=== PATIENT | female | born 1955 | race Caucasian/White ===

== ENCOUNTER → 2017-07-12 | Outpatient (CLI) | payer MEDICARE, MEDICAID ==
--- NOTE | 2017-07-12 15:24 | WOMENS IMAGING REPORT ---
EXAM DESCRIPTION: BILAT SCREENING MAMMO W/CAD COMPLETED DATE/TIME: 07/12/2017 2:07 pm REASON FOR STUDY: ROUTINE SCREENING; Z12.31 Z12.31 ENCNTR SCREEN MAMMOGRAM FOR MALIGNANT NEOPLASM O F NORAH COMPARISON: 06/30/2016 TECHNIQUE: Standard craniocaudal and mediolateral oblique views of each breast recorded using SEDLinea l acquisition. LIMITATIONS: None. FINDINGS: No masses, calcifications or architectural distortion. No areas of suspicion. Read with the assistance of CAD. .[facility] - R2 Cenova Version 1.3 .[facility] Imaging - R2 Cenova Version 1.3 .[facility] Imaging - R2 Cenova Version 2.4 .[facility] [place] - R2 Cenova Version 2.4 .[facility] - R2 [employer] Version 9.2 IMPRESSION: NORMAL MAMMOGRAM. BIRADS 1. BREAST DENSITY: b. There are scattered areas of fibroglandular density. BIRAD: 1 NEGATIVE RECOMMENDATION: ROUTINE SCREENING COMMENT: The patient has been notified of the results by letter per SA requirements. Additional no tification policies are in place for contacting patient with suspicious or incomplete findings. Quality ID #[id number]: The [employer] recommends an annual screening mammogram for women aged 40 years or over. This facility utilizes a reminder system to ensure that all patients receive reminder letters, and/or direct phone calls for appointments. This includes reminders for routine scr eening mammograms, diagnostic mammograms, or other Breast Imaging Interventions when appropriate. Th is patient will be placed in the appropriate reminder system. The [employer] (ACR) has developed recommendations for screening MRI of the breast s in certain patient populations, to be used in conjunction with mammography. Breast MRI surveillanc e may be appropriate for women with more than 20% lifetime risk of developing breast cancer as deter mined by genetic testing, significant family history of the disease, or history of mantle radiation f or Hodgkins Disease. ACR Practice Guidelines 2008. TECHNICAL DOCUMENTATION: FINDING NUMBER: (1) ASSESSMENT: (1) JOB ID: [id number] [employer])- All Rights Reserved
== END ==
LOC: WI 13:28
PROVIDERS: ATTEND Family Medicine
DX: Z12.31 Encounter for screening mammogram for malignant neoplasm of breast (principal)
CPT/HCPCS: 77067; G0202

== ENCOUNTER 2017-07-31 16:21 | Emergency (ER) | payer MEDICARE, MEDICAID ==
[2017-07-31] MEDS ORDERED: PREDNISONE 20 MG TABLET PO ONE (17:12)
[2017-07-31] MEDS ORDERED: IPRATROPIUM/ALBUTEROL 0.5-2.5 MG/3 ML AMPUL NEB ONE (17:12)
--- NOTE | 2017-07-31 17:12 | ER Document Report ---
ED Respiratory Problem - General Chief Complaint: Painful cough, rib pain Stated Complaint: COUGH Time Seen by Provider: 07/31/17 17:01 Notes: Patient is a 62-year-old female who presents emergency department complaining of cough since Monday. She denies any fevers or chills. She has been taking Levaquin at home from an old prescription and has a refill at the pharmacy. She states she is a smoker but denies a history of COPD or asthma. She did states that her cough is not productive. Worse at night. She also admits to right-sided chest wall pain that is worse with deep breaths. With a history of rib fracture on that side TRAVEL OUTSIDE OF THE [place] IN LAST 30 DAYS: No - Related Data Allergies/Adverse Reactions: diclofenac potassium [From Cataflam] Allergy (Verified 06/06/12 16:22) Hives naproxen [Naproxen] Allergy (Verified 06/06/12 16:22) tramadol HCl [From Ultram ER] Allergy (Verified 06/06/12 16:22) Past Medical History - Social History Smoking Status: Current Every Day Smoker Family History: Reviewed & Not Pertinent - Past Medical History Cardiac Medical History: Reports: Hx Coronary Artery Disease - MITRAL VALVE PROLAPSE Denies: Hx Hypertension Pulmonary Medical History: Denies: Hx Asthma Neurological Medical History: Reports: Hx Migraine Endocrine Medical History: Denies: Hx Diabetes Mellitus Type 1, Hx Diabetes Mellitus Type 2 Musculoskeltal Medical History: Reports Hx Arthritis, Reports Hx Fibromyalgia Psychiatric Medical History: Reports: Hx Bipolar Disorder Past Surgical History: Reports: Hx Breast Surgery - "plugged milk duct removed" , Hx Hysterectomy - Immunizations Hx Diphtheria, Pertussis, Tetanus Vaccination: Yes Hx Pneumococcal Vaccination: 05/14/11 Review of Systems - Review of Systems Constitutional: No symptoms reported Cardiovascular: See HPI Respiratory: See HPI Gastrointestinal: No symptoms reported - Negative Musculoskeletal: No symptoms reported Neurological/Psychological: No symptoms reported -: Yes All other systems reviewed and negative Physical Exam - Vital signs Vitals: Temp Pulse Resp BP Pulse Ox 100.0 F 86 18 147/52 H 95 07/31/17 16:29 07/31/17 16:29 07/31/17 16:29 07/31/17 16:29 07/31/17 16:29 - Notes Notes: PHYSICAL EXAM GENERAL: Alert, interacts well. HEAD: Normocephalic, atraumatic. EYES: Pupils equal, round, and reactive to light. Extraocular movements intact. ENT: Oral mucosa moist, tongue midline. NECK: Full range of motion. Supple. Trachea midline. LUNGS: Bilateral wheezes without rhonchi. No respiratory distress. Chest nontender to palpation on the right side. No evidence of crepitus. No evidence of deformities. HEART: Regular rate and rhythm. No murmurs, gallops, or rubs. EXTREMITIES: Moves all 4 extremities spontaneously. No edema, radial and dorsalis pedis pulses 2/4 bilaterally. No cyanosis. NEUROLOGICAL: Alert and oriented x4. Normal speech. PSYCH: Normal affect, normal mood. SKIN: Warm, dry, normal turgor. No rashes or lesions noted. Course - Re-evaluation Re-evalutation: 07/31/17 18:39 Patient is a 62-year-old female is hemodynamically stable, no acute distress and afebrile. X-ray shows a right upper lobe infiltrate that is new in comparison to previous studies. Reviewed study with radiologist Dr. Milton He does not see any surrounding adenopathy that would be concerning for TB. No evidence of granuloma on imaging and patient with low risk factors and presentation is not consistent with TB. Patient cough and shortness of breath improved after nebulizer treatment. Will discharge her home with inhaler and have her continue her Levaquin to follow-up with her primary care doctor as scheduled on Monday to evaluate need for further CT imaging. Patient agrees with plan and is stable for discharge home. 07/31/17 18:52 patient ambulated on room air although she desaturated to was 92% but she states she clinically felt fine and denies any shortness of breath. Will discharge home on steroids, inhaler with instruction to continue taking her Levaquin and to follow-up with her primary care on Monday as scheduled. Patient agrees with plan. - Vital Signs Vital signs: Temp Pulse Resp BP Pulse Ox 100.0 F 99 20 161/71 H 93 07/31/17 16:29 07/31/17 18:50 07/31/17 18:50 07/31/17 18:50 07/31/17 18:50 - Diagnostic Test Radiology reviewed: Image reviewed, Reports reviewed Discharge - Discharge Clinical Impression: Pneumonia Qualifiers: Pneumonia type: due to unspecified organism Laterality: right Lung location: upper lobe of lung Qualified Code(s): J18.1 - Lobar pneumonia, unspecified organism Condition: Good Disposition: HOME, SELF-CARE Additional Instructions: PNEUMONIA: Your examination indicates that you have pneumonia. This is an infection of the lung tissue, usually caused by bacteria or a virus. Symptoms include cough, fever, shaking chills, chest pain, shortness of breath, and coughing up bloody sputum. Treatment for bacterial pneumonia includes rest, antibiotics for 10 to 14 days, increasing your clear liquid intake, a cool mist humidifier at your bedside, and fever medication. Often, a repeat chest X-ray is performed in a few weeks--even if you feel better--to ascertain whether the infection has completely resolved and no underlying lung problem is present. You should call the physician if you develop persistent vomiting, high fever that does not respond to fever medication, increasing shortness of breath , confusion, or lethargy. Also, failure to improve within two to three days is an indication for re-examination. ANTIBIOTIC THERAPY: You have been given an antibiotic prescription. It's important that you take all the medication, unless instructed otherwise by your physician. Failure to complete the entire course can result in relapse of your condition. Common side effects of antibiotics include nausea, intestinal cramping, or diarrhea. Women may develop vaginal yeast infections, and babies can get yeast (thrush) in the mouth following the use of antibiotics. Contact your physician if you develop significant side effects from this medication. Allergy to this antibiotic can result in hives, wheezing, faintness, or itching. If symptoms of allergy occur, stop the medication and call the doctor. LEVOFLOXACIN: You have been given an antibacterial agent, levofloxacin (Levaquin). This medicine is not related to the penicillins, sulfas, cephalosporins, or tetracyclines. It is often given to patients who are allergic to these drugs. It has been chosen for you either because other drugs are not appropriate, or because of the nature of your problem. Levaquin should not be taken with antacids, as these can decrease its effectiveness. It can be taken without regard to meals. LEVAQUIN SHOULD NOT BE TAKEN BY CHILDREN, NURSING WOMEN, OR WOMEN. Although Levaquin is usually well-tolerated, common side effects can include nausea and diarrhea. Contact your doctor if you experience any unusual symptoms while on this medication, such as joint pain or swelling, shortness of breath, wheezing, faintness, or hives. USE OF ACETAMINOPHEN (Tylenol): Acetaminophen may be taken for pain relief or fever control. It's much safer than aspirin, offering a wider range of "safe" dosages. It is safe during . Some brand names are Tylenol, Panadol, Datril, Anacin 3, Tempra, and Liquiprin. Acetaminophen can be repeated every four hours. The following are maximum recommended dosages: WEIGHT Dose Drops Elixir Chewable( 80mg) (LBS.) drprs=droppers tsp=teaspoon 6 40 mg 0.4 ml (1/2) 6-11 80 mg 0.8 ml (full) tsp 1 tab 12-16 120 mg 1 1/2 drprs 3/4 tsp 1 1/2 tabs 17-23 160 mg 2 drprs 1 tsp 2 tabs 24-30 240 mg 3 drprs 1 1/2 tsp 3 tabs 30-35 320 mg 2 tsp 4 tabs 36-41 360 mg 2 1/4 tsp 4 1/2 tabs 42-47 400 mg 2 1/2 tsp 5 tabs 48-53 480 mg 3 tsp 6 tabs 54-59 520 mg 3 1/4 tsp 6 1/2 tabs 60-64 560 mg 3 1/2 tsp 7 tabs 65-70 600 mg 3 3/4 tsp 7 1/2 tabs 71-76 640 mg 4 tsp 8 tabs 77-82 720 mg 4 1/2 tsp 9 tabs 83-88 800 mg 5 tsp 10 tabs >89 pounds or adults 650 mg to 900 mg Acetaminophen can be repeated every four hours. Maximum dose not to exceed 4000 mg a day. These maximum recommended dosages are slightly higher than the dosages written on the product container, but these dosages are very safe and below the toxic dosage for acetaminophen. FOLLOW-UP CARE: If you have been referred to a physician for follow-up care, call the physician s office for an appointment as you were instructed or within the next two days. If you experience worsening or a significant change in your symptoms, notify the physician immediately or return to the Emergency Department at any time for re-evaluation. Prescriptions: Benzonatate [Tessalon Perle 100 mg Capsule] 100 mg PO Q8HP PRN #40 cap PRN Reason: Albuterol Sulfate [Proair HFA Inhalation Aerosol 8.5 gm MDI] 2 puff IH Q4H PRN # 1 mdi PRN Reason: Prednisone [Deltasone 20 mg Tablet] 3 tab PO DAILY 5 Days tablet Referrals: KAY GOMEZ MD [Primary Care Provider] - 08/04/17
--- NOTE | 2017-07-31 17:40 | RADIOLOGY REPORT (SQ) ---
EXAM DESCRIPTION: RIBS RIGHT W/PA CHEST COMPLETED DATE/TIME: 07/31/2017 5:29 pm REASON FOR STUDY: rib pain COMPARISON: 2012. TECHNIQUE: Frontal view of the chest and additional views of the right ribs acquired. NUMBER OF VIEWS: 5 LIMITATIONS: None. FINDINGS: FRONTAL CXR: Vague density over the right upper lung field. No pneumothorax. Suspect sca rring in the left mid lung zone. RIBS: No displaced rib fractures. No lytic or blastic bony lesions. OTHER: No other significant finding. IMPRESSION: 1. Ribs grossly intact. 2. Vague density in the right upper lung field persists on all images. Not seen in 2012. Potential subtle developing pneumonia, but a parenchymal nodule is also i n the differential. Follow-up chest CT warranted. COMMENT: SITE OF TRAUMA/COMPLAINT MARKED/STAMP COMPLETED: YES. TECHNICAL DOCUMENTATION: JOB ID: [id number] [email or web address]- All Rights Reserved
[2017-07-31 18:52] VITALS: BP 161/71
[2017-07-31] MEDS ORDERED: ALBUTEROL SULFATE HFA (90 MCG/PUFF) 8 GM MDI (1 MDI/ER DISP) IH PRN (19:02)
== END 2017-07-31 19:11 | disposition home or self-care (01) ==
LOC: ER 16:21
DX: J18.1 Lobar pneumonia, unspecified organism (principal); R05 Cough; R07.89 Other chest pain; R06.2 Wheezing; F17.200 Nicotine dependence, unspecified, uncomplicated; I25.10 Atherosclerotic heart disease of native coronary artery without angina pectoris; Z88.6 Allergy status to analgesic agent; Z88.8 Allergy status to other drugs, medicaments and biological substances; Z88.5 Allergy status to narcotic agent
CPT/HCPCS: 94640; 99283; 71101; A9270 ×2; J3490; J7512; J7620

== ENCOUNTER → 2018-07-27 | Outpatient (CLI) | payer MEDICARE ==
--- NOTE | 2018-07-27 13:17 | WOMENS IMAGING REPORT ---
EXAM DESCRIPTION: BILAT SCREENING MAMMO W/CAD COMPLETED DATE/TIME: 07/27/2018 12:54 pm REASON FOR STUDY: SCREENING MAMMO Z12.31 ENCNTR SCREEN MAMMOGRAM FOR MALIGNANT NEOPLASM OF NORAH COMPARISON: 2015, 2016 TECHNIQUE: Standard craniocaudal and mediolateral oblique views of each breast recorded using digita l acquisition. LIMITATIONS: None. FINDINGS: No masses, calcifications or architectural distortion. No areas of suspicion. Read with the assistance of CAD. .[facility] - R2 Cenova Version 1.3 .[facility] Imaging - R2 Cenova Version 1.3 .[facility] - R2 Cenova Version 2.4 .[facility] - R2 Cenova Version 2.4 .[facility] - R2 Administrative Assistant Data Entry Version 9.2 IMPRESSION: NORMAL MAMMOGRAM. BIRADS 1. BREAST DENSITY: b. There are scattered areas of fibroglandular density. BIRAD: 1 NEGATIVE RECOMMENDATION: ROUTINE SCREENING COMMENT: The patient has been notified of the results by letter per MQSA requirements. Additional no tification policies are in place for contacting patient with suspicious or incomplete findings. Quality ID #[id number]: The [employer] recommends an annual screening mammogram for women aged 40 years or over. This facility utilizes a reminder system to ensure that all patients receive reminder letters, and/or direct phone calls for appointments. This includes reminders for routine scr eening mammograms, diagnostic mammograms, or other Breast Imaging Interventions when appropriate. Th is patient will be placed in the appropriate reminder system. The [employer] (ACR) has developed recommendations for screening MRI of the breast s in certain patient populations, to be used in conjunction with mammography. Breast MRI surveillanc e may be appropriate for women with more than 20% lifetime risk of developing breast cancer as deter mined by genetic testing, significant family history of the disease, or history of mantle radiation f or Hodgkins Disease. ACR Practice Guidelines 2008. TECHNICAL DOCUMENTATION: FINDING NUMBER: (1) ASSESSMENT: (1) JOB ID: [id number] [employer]- All Rights Reserved Reading location - IP/workstation name: [email or web address] / [email or web address]
== END ==
LOC: WI 11:28
PROVIDERS: ATTEND Family Medicine
DX: Z12.31 Encounter for screening mammogram for malignant neoplasm of breast (principal)
CPT/HCPCS: 77067

== ENCOUNTER 2019-06-25 07:49 | Day surgery (SDC) | payer MEDICARE ==
[~2019-06-25 07:49] MED LIST: BUPIVACAINE HCL 0.75% INJ/PF (7.5 MG/1 ML) 10 ML SDV OD PRN; CHONDR SU A NA/HYALUR INTRAOC KIT (SURGICARE) ONE; EPINEPHRINE INJ/PF 1 MG/1 ML AMPULE ONE; FENTANYL CITRATE INJ/PF 100 MCG/2 ML AMPUL ONE; KETOROLAC TROMETHAMINE 0.45% 4 DROP/0.4 ML DROPERETTE OD PRN; LIDOCAINE 1% INJ-PF (10 MG/ML) 30 ML SDV ONE; LIDOCAINE 4% INJ/PF (40 MG/ML) 5 ML AMPUL OD PRN; MIDAZOLAM 2 MG/2 ML INJ ONE; ONDANSETRON HCL INJ/PF 4 MG/2 ML SDV ONE
[2019-06-25] MEDS: BESIFLOXACIN HCL 0.6% OPH SUSP 5 ML BOTTLE OD PRN ×5 (08:40→09:43)
[2019-06-25] MEDS: TETRACAINE HCL 0.5% OPH SOLN 4 ML OD PRN ×2 (08:40→09:14)
[2019-06-25] MEDS: CYCLOPENTOLATE 0.2%/PHENYLEPHRINE 1% OPH SOLN 2 ML OD PRN ×3 (08:40→09:00)
[2019-06-25] MEDS: TROPICAMIDE 1% OPH SOLN 15 ML OD PRN ×3 (08:40→09:00)
[2019-06-25] MEDS: DORZOLAMIDE HCL 2%/TIMOLOL MALEAT 0.5% OPH SOLN 10 ML OD PRN ×2 (09:43)
[2019-06-25] MEDS ORDERED: MIDAZOLAM 2 MG/2 ML INJ ONE (09:46)
--- NOTE | 2019-06-25 12:46 | Operative Report ---
Operative Report-[facility] Operative Report: DATE OF SURGERY: 06/25/2019 PREOPERATIVE DIAGNOSIS: CATARACT, RIGHT EYE. POSTOPERATIVE DIAGNOSIS: CATARACT, RIGHT EYE. PROCEDURE PERFORMED: PHACOEMULSIFICATION WITH POSTERIOR CHAMBER INTRAOCULAR LENS, RIGHT EYE. Intraocular Lens Model : SN 60 WF 18.5 Total Phaco Time: 3.05 CDE SURGEON: MARGAUX SERRANO MD ANESTHESIA: TOPICAL WITH MAC. INDICATIONS FOR SURGERY: Difficulty reading road signs and captions on TV. PROCEDURE: The patient was brought to the Operating Room and placed on the operative table. Following tetracaine drops, topical anesthesia was administered. This consisted of instrument wipe pledgets soaked in a solution of 4% Xylocaine mixed with 0.75% Marcaine in a 1:2 ratio. A 2 x 1 cm pledget was placed in the superior fornix. A 1 x 1 cm pledget was placed in the inferior fornix. The eye was patched shut for 5 minutes. The patch was removed. The eye was sterilely prepped and draped in the usual manner. Lid speculum was placed in the eye. The pledgets were removed. 4-0 black silk sutures were placed around the superior and the inferior rectus muscles to be used as traction. A conjunctival peritomy was made at the 10 o'clock position. Hemostasis was obtained with bipolar cautery. A posterior limbal groove was created using a crescent knife and dissected anteriorly towards the cornea. A sharp point blade was used to create a paracentesis site at the 2 o'clock position. 0.2 cc non preserved Lidocaine was injected into the anterior chamber. A 2.4 mm keratome was used to enter the anterior chamber through the groove. Viscoelastic was injected into the anterior chamber. An anterior capsulotomy was performed using Utrata forceps in a capsulorrhexis fashion. Hydrodissection and hydrodelineation were performed. Phacoemulsification was performed in [id number] technique. Following this, the I/A unit was used to remove residual cortex. Viscoelastic was injected into the capsular bag. The Intraocular lens was placed in the capsular bag. The I/A unit was used to remove residual viscoelastic. The wound was seen to be watertight under high and low pressure, and no sutures were placed. The intraocular lens was well centered. The pressure was adjusted in the eye to normal pressure. The 4-0 black silk sutures and lid speculum were removed. The eye was shielded after Besivance and Cosopt drops were placed. The patient tolerated the procedure well and was sent to the Recovery Room in good condition.
== END 2019-06-25 10:20 | disposition home or self-care (01) ==
LOC: SC 07:49
PROVIDERS: ATTEND Ophthalmology
DX: H25.813 Combined forms of age-related cataract, bilateral (principal); D23.122 Other benign neoplasm of skin of left lower eyelid, including canthus; H04.123 Dry eye syndrome of bilateral lacrimal glands; I10 Essential (primary) hypertension; E78.00 Pure hypercholesterolemia, unspecified; E03.9 Hypothyroidism, unspecified; F17.210 Nicotine dependence, cigarettes, uncomplicated; Z88.6 Allergy status to analgesic agent; Z79.899 Other long term (current) drug therapy; M79.7 Fibromyalgia
CPT/HCPCS: 66984; V2632; J2250; J3490 ×5; A9270; J0171; J3010; J2405; 142

== ENCOUNTER → 2019-08-19 | Outpatient (CLI) | payer MEDICARE ==
--- NOTE | 2019-08-19 12:07 | WOMENS IMAGING REPORT ---
EXAM DESCRIPTION: BILAT SCREENING MAMMO W/CAD COMPLETED DATE/TIME: 08/19/2019 10:24 am REASON FOR STUDY: ROUTINE SCREENING [id number] Z12.31 Z12.31 ENCNTR SCREEN MAMMOGRAM FOR MALIGNANT NEOPLASM OF NORAH COMPARISON: Multiple since 2016 EXAM PARAMETERS: Standard craniocaudal and mediolateral oblique views of each breast recorded using digital acquisition. Read with the assistance of CAD. .[facility] - [employer] Version 9.2 LIMITATIONS: None. FINDINGS: No suspicious masses, suspicious calcifications or architectural distortion. No areas of c oncern. IMPRESSION: Negative MAMMOGRAM. BIRADS 1 BREAST DENSITY: b. There are scattered areas of fibroglandular density. BIRAD: ASSESSMENT: 1 NEGATIVE RECOMMENDATION: ROUTINE SCREENING Please continue yearly bilateral screening mammography/tomosynthesis in July 2020 COMMENT: The patient has been notified of the results by letter per SA requirements. Additional no tification policies are in place for contacting patient with suspicious or incomplete findings. Quality ID #225: The [employer] recommends an annual screening mammogram for women aged 40 years or over. This facility utilizes a reminder system to ensure that all patients receive reminder letters, and/or direct phone calls for appointments. This includes reminders for routine scr eening mammograms, diagnostic mammograms, or other Breast Imaging Interventions when appropriate. Th is patient will be placed in the appropriate reminder system. TECHNICAL DOCUMENTATION: FINDING NUMBER: (1) ASSESSMENT: (1) JOB ID: [id number] [employer]- All Rights Reserved Reading location - IP/workstation name: [email or web address]
== END ==
LOC: WI 09:48
PROVIDERS: ATTEND Family Medicine
DX: Z12.31 Encounter for screening mammogram for malignant neoplasm of breast (principal)
CPT/HCPCS: 77067

== ENCOUNTER 2019-08-23 13:18 | Emergency (ER) | payer MEDICARE ==
[2019-08-23] MEDS ORDERED: PROMETHAZINE HCL 25 MG TABLET PO ONE (13:58)
[2019-08-23] MEDS ORDERED: DIPHENHYDRAMINE HCL 25 MG CAPSULE PO ONE (13:58)
[2019-08-23] MEDS ORDERED: ACETAMINOPHEN 325 MG TABLET PO ONE (13:58)
--- NOTE | 2019-08-23 14:01 | ER Document Report ---
ED Medical Screen (RME) - General Chief Complaint: Blood Pressure Problem Stated Complaint: CHEST PAIN/NUMBNESS/BLOOD PRESSURE ISSUES Time Seen by Provider: 08/23/19 13:49 Primary Care Provider: KAY GOMEZ MD [Primary Care Provider] - Follow up as needed Mode of Arrival: Ambulatory Information source: Patient Notes: 64-year-old female with history of high blood pressure migraines presents emergency department with complaints of high blood pressure chest heaviness and the beginnings of a migraine. Reports nausea but did not take her Phenergan. She reports she is taking all her blood pressure medications without decrease in her blood pressure. Denies fever vomiting diarrhea. Reports chest pressure to the center of her chest. Reports migraine beginning to the back of her head. Reports it will get worse if she does have something to eat or drink. I have greeted and performed a rapid initial assessment of this patient. A comprehensive ED assessment and evaluation of the patient, analysis of test results and completion of the medical decision making process will be conducted by additional ED providers. TRAVEL OUTSIDE OF THE [place] IN LAST 30 DAYS: No - Related Data Allergies/Adverse Reactions: aspirin Allergy (Verified 08/23/19 13:49) diclofenac potassium [From Cataflam] Allergy (Verified 06/06/12 16:22) Hives naproxen [Naproxen] Allergy (Verified 06/06/12 16:22) tramadol HCl [From Ultram ER] Allergy (Verified 06/06/12 16:22) Home Medications: Clonidine. Propranolol. Lisinopril Past Medical History - Social History Chew tobacco use (# tins/day): No Frequency of alcohol use: None Drug Abuse: None - Past Medical History Cardiac Medical History: Reports: Hx Coronary Artery Disease - MITRAL VALVE PROLAPSE, Hx Hypertension Denies: Hx Heart Attack Pulmonary Medical History: Denies: Hx Asthma Neurological Medical History: Reports: Hx Migraine. Denies: Hx Cerebrovascular Accident, Hx Seizures Endocrine Medical History: Denies: Hx Diabetes Mellitus Type 1, Hx Diabetes Mellitus Type 2 Renal/ Medical History: Denies: Hx Peritoneal Dialysis GI Medical History: Reports: Hx Hiatal Hernia, Hx Ulcer. Denies: Hx Hepatitis Musculoskeltal Medical History: Reports Hx Arthritis, Reports Hx Fibromyalgia Psychiatric Medical History: Reports: Hx Bipolar Disorder Infectious Medical History: Denies: Hx Hepatitis Past Surgical History: Reports: Hx Breast Surgery - "plugged milk duct removed", Hx Hysterectomy. Denies: Hx Mastectomy, Hx Open Heart Surgery, Hx Pacemaker - Immunizations Hx Diphtheria, Pertussis, Tetanus Vaccination: Yes Physical Exam - Vital signs Vitals: Temp Pulse Resp BP Pulse Ox 98.1 F 61 16 156/74 H 98 08/23/19 13:39 08/23/19 13:39 08/23/19 13:39 08/23/19 13:39 08/23/19 13:39 Course - Vital Signs Vital signs: Temp Pulse Resp BP Pulse Ox 98.1 F 61 16 156/74 H 98 08/23/19 13:39 08/23/19 13:39 08/23/19 13:39 08/23/19 13:39 08/23/19 13:39 Doctor's Discharge - Discharge Referrals: KAY GOMEZ MD [Primary Care Provider] - Follow up as needed
--- NOTE | 2019-08-23 14:45 | RADIOLOGY REPORT (SQ) ---
EXAM DESCRIPTION: CHEST 2 VIEWS COMPLETED DATE/TIME: 08/23/2019 2:35 pm REASON FOR STUDY: cp COMPARISON: None. EXAM PARAMETERS: NUMBER OF VIEWS: two views TECHNIQUE: Digital Frontal and Lateral radiographic views of the chest acquired. RADIATION DOSE: NA LIMITATIONS: none FINDINGS: LUNGS AND PLEURA: No opacities, masses or pneumothorax. No pleural effusion. MEDIASTINUM AND HILAR STRUCTURES: No masses or contour abnormalities. HEART AND VASCULAR STRUCTURES: Heart normal size. No evidence for failure. BONES: No acute findings. HARDWARE: None in the chest. OTHER: No other significant finding. IMPRESSION: NO ACUTE RADIOGRAPHIC FINDING IN THE CHEST. TECHNICAL DOCUMENTATION: JOB ID: [id number] [employer]- All Rights Reserved Reading location - IP/workstation name: [email or web address]
[2019-08-23 14:49] LABS: APPEARANCE,URINE CLEAR; BILIRUBIN,URINE NEGATIVE (NEGATIVE); COLOR,URINE STRAW; GLUCOSE, URINE NEGATIVE (NEGATIVE); KETONES,URINE NEGATIVE (NEGATIVE); LEUKOCYTE ESTERASE,URINE NEGATIVE (NEGATIVE); NITRITE,URINE NEGATIVE (NEGATIVE); PROTEIN,URINE NEGATIVE (NEGATIVE); URINE SPECIFIC GRAVITY 1.004; UROBILINOGEN,URINE NEGATIVE mg/dL (<2.0)
[2019-08-23 14:52] LABS: ABSOLUTE BASOPHILS # (AUTO) 0.1 10^3/uL (0.0-0.2); ABSOLUTE EOSINOPHILS # (AUTO) 0.2 10^3/uL (0.0-0.6); ABSOLUTE LYMPHOCYTES (AUTO) 3.3 10^3/uL (0.5-4.7); ABSOLUTE MONOCYTES (AUTO) 0.8 10^3/uL (0.1-1.4); ABSOLUTE NEUT (AUTO) 7.3 10^3/uL (1.7-8.2); BASOPHILS % (AUTO) 0.5 % (0-2); EOSINOPHILS % (AUTO) 1.7 % (0-6); HEMATOCRIT 40.9 % (36.0-47.0); HEMOGLOBIN 14.5 g/dL (12.0-15.5); LYMPHOCYTES % (AUTO) 28.5 % (13-45); MEAN CORPUSCULAR HEMOGLOBIN 34.2 pg (27.0-33.4); MEAN CORPUSCULAR HGB CONC 35.6 g/dL (32.0-36.0); MEAN CORPUSCULAR VOLUME 96 fl (80-97); MONOCYTES % (AUTO) 6.6 % (3-13); PLATELET COUNT 318 10^3/uL (150-450); RED BLOOD COUNT 4.25 10^6/uL (3.72-5.28); RED CELL DISTRIBUTION WIDTH 14.3 % (11.5-14.0); SEGMENTED NEUTROPHILS % (AUTO) 62.7 % (42-78); TOTAL CELLS COUNTED % (AUTO) 100 %; WHITE BLOOD COUNT 11.7 10^3/uL (4.0-10.5)
[2019-08-23 15:09] LABS: ALKALINE PHOSPHATASE 113 U/L (38-126); ANION GAP 14 (5-19); ASPARTATE AMINO TRANSFERASE 38 U/L (14-36); BILIRUBIN,DIRECT 0.3 mg/dL (0.0-0.4); BILIRUBIN,TOTAL 0.7 mg/dL (0.2-1.3); BLOOD UREA NITROGEN 12 mg/dL (7-20); CALCIUM 10.8 mg/dL (8.4-10.2); CARBON DIOXIDE 29 mmol/L (22-30); CHLORIDE 98 mmol/L (98-107); GLUCOSE 109 mg/dL (75-110); POTASSIUM 4.5 mmol/L (3.6-5.0); TOTAL PROTEIN 8.7 g/dL (6.3-8.2)
[2019-08-23 15:52] VITALS: BP 138/68
--- NOTE | 2019-08-23 17:18 | ER Document Report ---
ED General - General Chief Complaint: Blood Pressure Problem Stated Complaint: CHEST PAIN/NUMBNESS/BLOOD PRESSURE ISSUES Time Seen by Provider: 08/23/19 13:49 Primary Care Provider: KAY GOMEZ MD [Primary Care Provider] - Follow up as needed Mode of Arrival: Ambulatory Information source: Patient Notes: 64-year-old female arrives POV with chief complaint of having high blood pressure. Dr. Gomez put her on chlorthalidone yesterday and increased her lisinopril from 20-30. Patient's blood pressure spiked to 181/91 and after patient took breakthrough clonidine 0.1 her pressure actually increased to 172/100; the patient called her 82-year-old mother at home and asked her what kind of medicine she was taking. She takes Norvasc 10 mg as well as losartan 100 and simvastatin. Therefore we will stop the Inderal 20 twice daily that the patient has been taking because of some emotional problems she had many years ago with her boyfriend and not as of blood pressure. We will stop this particular medicine and start Norvasc 10 mg nightly Beatris with chlorthalidone and lisinopril 20 TRAVEL OUTSIDE OF THE [place] IN LAST 30 DAYS: No - HPI Onset: Other - 1 month Onset/Duration: Gradual Quality of pain: No pain Severity: Mild Pain Level: 1 Associated symptoms: None Exacerbated by: Denies Relieved by: Denies - Advised this patient that Norvasc may cause edema of legs; patient advises he has been having lots of urination on the chlorthalidone Similar symptoms previously: Yes Recently seen / treated by doctor: Yes - Related Data Allergies/Adverse Reactions: aspirin Allergy (Verified 08/23/19 13:49) diclofenac potassium [From Cataflam] Allergy (Verified 06/06/12 16:22) Hives naproxen [Naproxen] Allergy (Verified 06/06/12 16:22) tramadol HCl [From Ultram ER] Allergy (Verified 06/06/12 16:22) Home Medications: Clonidine. Propranolol. Lisinopril Past Medical History - General Information source: Patient - Social History Smoking Status: Current Every Day Smoker Cigarette use (# per day): Yes Chew tobacco use (# tins/day): No Smoking Education Provided: Yes Frequency of alcohol use: None Drug Abuse: None Family History: Reviewed & Not Pertinent Patient has suicidal ideation: No Patient has homicidal ideation: No - Past Medical History Cardiac Medical History: Reports: Hx Coronary Artery Disease - MITRAL VALVE PROLAPSE, Hx Hypertension Denies: Hx Heart Attack Pulmonary Medical History: Denies: Hx Asthma Neurological Medical History: Reports: Hx Migraine. Denies: Hx Cerebrovascular Accident, Hx Seizures Endocrine Medical History: Denies: Hx Diabetes Mellitus Type 1, Hx Diabetes Mellitus Type 2 Renal/ Medical History: Denies: Hx Peritoneal Dialysis GI Medical History: Reports: Hx Hiatal Hernia, Hx Ulcer. Denies: Hx Hepatitis Musculoskeletal Medical History: Reports Hx Arthritis, Reports Hx Fibromyalgia Psychiatric Medical History: Reports: Hx Bipolar Disorder Infectious Medical History: Denies: Hx Hepatitis Past Surgical History: Reports: Hx Breast Surgery - "plugged milk duct removed", Hx Hysterectomy. Denies: Hx Mastectomy, Hx Open Heart Surgery, Hx Pacemaker - Immunizations Hx Diphtheria, Pertussis, Tetanus Vaccination: Yes Hx Pneumococcal Vaccination: 05/14/11 Review of Systems - Review of Systems Constitutional: No symptoms reported, Malaise EENT: No symptoms reported Cardiovascular: Dizziness, Other - Pressure Respiratory: No symptoms reported Gastrointestinal: No symptoms reported Genitourinary: Frequency - Creased frequency after chlorthalidone Female Genitourinary: No symptoms reported Musculoskeletal: No symptoms reported Skin: No symptoms reported Hematologic/Lymphatic: No symptoms reported Neurological/Psychological: No symptoms reported Physical Exam - Vital signs Vitals: Temp Pulse Resp BP Pulse Ox 98.1 F 61 16 156/74 H 98 08/23/19 13:39 08/23/19 13:39 08/23/19 13:39 08/23/19 13:39 08/23/19 13:39 Interpretation: Normal - HEENT Head: Normocephalic Eyes: Normal Conjunctiva: Normal Cornea: Normal Extraocular movements intact: Yes Eyelashes: Normal Pupils: PERRL Sinus: Normal Nasal: Normal Mouth/Lips: Normal Pharynx: Normal Neck: Normal - Respiratory Respiratory status: No respiratory distress Chest status: Nontender Breath sounds: Normal Chest palpation: Normal - Cardiovascular Rhythm: Regular Heart sounds: Normal auscultation Murmur: Yes - Bicuspid aortic Friction rub: No Ethel's crunch: No - Abdominal Inspection: Normal Distension: No distension Bowel sounds: Normal Tenderness: Nontender - Back Back: Normal - Extremities General upper extremity: Normal inspection General lower extremity: Normal inspection - Neurological Neuro grossly intact: Yes Cognition: Normal Orientation: AAOx4 [place] Coma Scale Eye Opening: Spontaneous [place] Coma Scale Verbal: Oriented Speech: Normal Cranial nerves: Normal Cerebellar coordination: Normal - Psychological Associated symptoms: Normal affect - Skin Skin Temperature: Warm Skin Moisture: Dry Course - Vital Signs Vital signs: Temp Pulse Resp BP Pulse Ox 98.1 F 61 16 138/68 H 98 08/23/19 13:39 08/23/19 13:39 08/23/19 13:39 08/23/19 15:52 08/23/19 13:39 - Laboratory Result Diagrams: 08/23/19 14:25 08/23/19 14:25 Laboratory results interpreted by me: 08/23/19 08/23/19 14:25 14:25 WBC 11.7 H MCH 34.2 H RDW 14.3 H Est GFR (MDRD) Non-Af 56 L Calcium 10.8 H AST 38 H Total Protein 8.7 H - Diagnostic Test Radiology reviewed: Reports reviewed Critical Care Note - Critical Care Note Total time excluding time spent on procedures (mins): 90 Comments: I advised this patient to stop the propranolol and decrease lisinopril to 20 and to return to ER if she becomes too lightheaded and also to use precautions upon standing from a sitting position and hold onto something for at least 2 minutes before resuming activity Discharge - Discharge Clinical Impression: Hypertension Condition: Good Disposition: HOME, SELF-CARE Additional Instructions: stop the propranolol and decrease lisinopril to 20 and to return to ER if you become too lightheaded and also to use precautions upon standing from a sitting position and hold onto something for at least 2 minutes before resuming activity; take medicines as directed otherwise; but with printing and stamping supervisor next month and return to ER for any other problems. Take your blood pressure twice a day and write this down on a calendar for your printing and stamping supervisor or your personal doctor Prescriptions: Amlodipine Besylate [Norvasc 10 mg Tablet] 10 mg PO DAILY #30 tablet Referrals: KAY GOMEZ MD [Primary Care Provider] - Follow up as needed
--- NOTE | 2019-08-23 17:44 | EKG REPORT ---
SEVERITY:- ABNORMAL ECG - SINUS RHYTHM PROBABLE LEFT VENTRICULAR HYPERTROPHY : Confirmed by: Reji Conti MD 23-Aug-2019 17:42:33
== END 2019-08-23 17:34 | disposition home or self-care (01) ==
LOC: ER 13:18
DX: I10 Essential (primary) hypertension (principal); R07.9 Chest pain, unspecified; R20.0 Anesthesia of skin; R53.81 Other malaise; R42 Dizziness and giddiness; Z79.899 Other long term (current) drug therapy; F17.210 Nicotine dependence, cigarettes, uncomplicated; I25.10 Atherosclerotic heart disease of native coronary artery without angina pectoris
CPT/HCPCS: 93005; 99285; 36415; 85025; 80053; 81001; 84484; 71046; 93010; A9270 ×3

== ENCOUNTER 2019-10-09 13:18 | Observation (INO) | payer MEDICARE, MEDICAID ==
[~2019-10-09 13:18] MED LIST changes: -BUPIVACAINE HCL 0.75% INJ/PF (7.5 MG/1 ML) 10 ML SDV OD PRN; -CHONDR SU A NA/HYALUR INTRAOC KIT (SURGICARE) ONE; +DEXAMETHASONE SOD PHOSPHATE INJ 4 MG/1 ML VIAL ONE; -EPINEPHRINE INJ/PF 1 MG/1 ML AMPULE ONE; -FENTANYL CITRATE INJ/PF 100 MCG/2 ML AMPUL ONE; -KETOROLAC TROMETHAMINE 0.45% 4 DROP/0.4 ML DROPERETTE OD PRN; +KETOROLAC TROMETHAMINE 60 MG/2 ML SDV ONE; -LIDOCAINE 1% INJ-PF (10 MG/ML) 30 ML SDV ONE; +LIDOCAINE 2% INJ-PF (20 MG/ML) 2 ML AMPUL ONE; -LIDOCAINE 4% INJ/PF (40 MG/ML) 5 ML AMPUL OD PRN; -MIDAZOLAM 2 MG/2 ML INJ ONE; +ROCURONIUM BROMIDE INJ 50 MG/5 ML VIAL IV ONE; +SUCCINYLCHOLINE CHLORIDE INJ 200 MG/10 ML VIAL ONE
--- NOTE | 2019-10-09 14:08 | ER Document Report ---
ED Medical Screen (RME) - General Stated Complaint: LOWER RIGHT RIB PAIN Time Seen by Provider: 10/09/19 14:01 Primary Care Provider: KAY GOMEZ MD [Primary Care Provider] - Follow up as needed Mode of Arrival: Medic Information source: Patient Notes: 64-year-old female presents via EMS for complaints of right rib pain right upper quad abdominal pain since Monday. She reports she moved some furniture and thinks he cracked a rib again. Has history of COPD and pneumonia. O2 sat upon arrival is 92%. Patient does not utilize home oxygen. Patient complains of pain with deep breath. No complaints of fever vomiting diarrhea. I have greeted and performed a rapid initial assessment of this patient. A comprehensive ED assessment and evaluation of the patient, analysis of test results and completion of the medical decision making process will be conducted by additional ED providers. TRAVEL OUTSIDE OF THE [place] IN LAST 30 DAYS: No - Related Data Allergies/Adverse Reactions: aspirin Allergy (Verified 10/09/19 13:58) diclofenac potassium [From Cataflam] Allergy (Verified 10/09/19 13:58) Hives naproxen [Naproxen] Allergy (Verified 10/09/19 13:58) tramadol HCl [From Ultram ER] Allergy (Verified 10/09/19 13:58) Past Medical History - Past Medical History Cardiac Medical History: Reports: Hx Coronary Artery Disease - MITRAL VALVE PROLAPSE, Hx Hypertension Denies: Hx Heart Attack Pulmonary Medical History: Denies: Hx Asthma Neurological Medical History: Reports: Hx Migraine. Denies: Hx Cerebrovascular Accident, Hx Seizures Endocrine Medical History: Denies: Hx Diabetes Mellitus Type 1, Hx Diabetes Mellitus Type 2 Renal/ Medical History: Denies: Hx Peritoneal Dialysis GI Medical History: Reports: Hx Hiatal Hernia, Hx Ulcer. Denies: Hx Hepatitis Musculoskeltal Medical History: Reports Hx Arthritis, Reports Hx Fibromyalgia Psychiatric Medical History: Reports: Hx Bipolar Disorder Infectious Medical History: Denies: Hx Hepatitis Past Surgical History: Reports: Hx Breast Surgery - "plugged milk duct removed", Hx Hysterectomy. Denies: Hx Mastectomy, Hx Open Heart Surgery, Hx Pacemaker - Immunizations Hx Diphtheria, Pertussis, Tetanus Vaccination: Yes Physical Exam - Vital signs Vitals: Temp Pulse Resp BP Pulse Ox 99.6 F 100 24 H 107/66 94 10/09/19 13:55 10/09/19 13:55 10/09/19 13:55 10/09/19 13:55 10/09/19 13:55 Course - Vital Signs Vital signs: Temp Pulse Resp BP Pulse Ox 99.6 F 100 24 H 107/66 94 10/09/19 13:55 10/09/19 13:55 10/09/19 13:55 10/09/19 13:55 10/09/19 13:55 Doctor's Discharge - Discharge Referrals: KAY GOMEZ MD [Primary Care Provider] - Follow up as needed
--- NOTE | 2019-10-09 14:35 | RADIOLOGY REPORT (SQ) ---
EXAM DESCRIPTION: RIBS RIGHT W/PA CHEST COMPLETED DATE/TIME: 10/09/2019 2:25 pm REASON FOR STUDY: right side rib pain, difficulty breathing COMPARISON: 07/31/2017 TECHNIQUE: Frontal view of the chest and additional views of the right ribs acquired. NUMBER OF VIEWS: Four view. LIMITATIONS: None. FINDINGS: FRONTAL CXR: There is bibasilar atelectasis. Possible small right effusion. No pneumotho rax. RIBS: No displaced rib fractures. No lytic or blastic bony lesions. OTHER: No other significant finding. IMPRESSION: Basilar atelectasis. Small right effusion. No pneumothorax. No displaced rib fracture s. COMMENT: SITE OF TRAUMA/COMPLAINT MARKED/STAMP COMPLETED: NO. TECHNICAL DOCUMENTATION: JOB ID: [id number] [email or web address]- All Rights Reserved Reading location - IP/workstation name: [email or web address]
[2019-10-09 14:50] LABS: ABSOLUTE BASOPHILS # (AUTO) 0.1 10^3/uL (0.0-0.2); ABSOLUTE LYMPHOCYTES (AUTO) 2.5 10^3/uL (0.5-4.7); ABSOLUTE MONOCYTES (AUTO) 0.9 10^3/uL (0.1-1.4); ABSOLUTE NEUT (AUTO) 14.3 10^3/uL (1.7-8.2); BASOPHILS % (AUTO) 0.5 % (0-2); EOSINOPHILS % (AUTO) 0.2 % (0-6); HEMOGLOBIN 13.4 g/dL (12.0-15.5); MEAN CORPUSCULAR HEMOGLOBIN 33.8 pg (27.0-33.4); MEAN CORPUSCULAR HGB CONC 35.3 g/dL (32.0-36.0); MEAN CORPUSCULAR VOLUME 96 fl (80-97); MONOCYTES % (AUTO) 5.3 % (3-13); PLATELET COUNT 364 10^3/uL (150-450); RED BLOOD COUNT 3.97 10^6/uL (3.72-5.28); RED CELL DISTRIBUTION WIDTH 14.1 % (11.5-14.0); TOTAL CELLS COUNTED % (AUTO) 100 %; WHITE BLOOD COUNT 17.9 10^3/uL (4.0-10.5)
[2019-10-09 15:20] LABS: ALBUMIN 4.6 g/dL (3.5-5.0); ALKALINE PHOSPHATASE 99 U/L (38-126); ANION GAP 10 (5-19); ASPARTATE AMINO TRANSFERASE 22 U/L (14-36); BILIRUBIN,DIRECT 0.1 mg/dL (0.0-0.4); BLOOD UREA NITROGEN 13 mg/dL (7-20); CALCIUM 9.8 mg/dL (8.4-10.2); CARBON DIOXIDE 26 mmol/L (22-30); CHLORIDE 103 mmol/L (98-107); GLUCOSE 101 mg/dL (75-110); POTASSIUM 4.2 mmol/L (3.6-5.0); TOTAL PROTEIN 7.9 g/dL (6.3-8.2)
--- NOTE | 2019-10-09 17:01 | ER Document Report ---
ED General - General Chief Complaint: Rib Pain Stated Complaint: LOWER RIGHT RIB PAIN Time Seen by Provider: 10/09/19 14:01 Primary Care Provider: KAY GOMEZ MD [Primary Care Provider] - Follow up as needed Mode of Arrival: Medic TRAVEL OUTSIDE OF THE [place] IN LAST 30 DAYS: No - HPI Notes: Ms. Lenz is a 64-year-old female with past medical history of scleroderma, fibromyalgia, arthritis, scoliosis, spinal stenosis, bicuspid aortic valve, hypertension, hyperlipidemia, who presents with chief complaint of right upper quadrant pain. 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 The pain started the day after to her RUQ. She states that she has history of 3 broken ribs in that same location, and that her pain feels similar in nature to those prior episodes. She has pain medications at home for her chronic back pain, and has been taking 2 Soma a day for her pain with mild relief. She denies any changes in bladder function, but states that she is now, constipated from her pain medications. Currently she endorses some shortness of breath but is only when she feels pain that takes "her breath away", as well as some nausea but denies any fevers or chills. She states that the pain worsens with any movement and is only relieved minimally when lying still supine. Denies any headache, fever, neck pain, URI, sore throat, chest pain, palp itations, syncope, cough, shortness of breath, wheeze, dyspnea, vomiting/diarrhea, urinary retention, dysuria, hematuria, or rash. - Related Data Allergies/Adverse Reactions: aspirin Allergy (Verified 10/09/19 13:58) diclofenac potassium [From Cataflam] Allergy (Verified 10/09/19 13:58) Hives naproxen [Naproxen] Allergy (Verified 10/09/19 13:58) tramadol HCl [From Ultram ER] Allergy (Verified 10/09/19 13:58) Past Medical History - General Information source: Patient - Social History Smoking Status: Current Every Day Smoker Frequency of alcohol use: None Family History: Reviewed & Not Pertinent Patient has suicidal ideation: No Patient has homicidal ideation: No - Past Medical History Cardiac Medical History: Reports: Hx Coronary Artery Disease - MITRAL VALVE PROLAPSE, Hx Hypertension Denies: Hx Heart Attack Pulmonary Medical History: Denies: Hx Asthma Neurological Medical History: Reports: Hx Migraine. Denies: Hx Cerebrovascular Accident, Hx Seizures Endocrine Medical History: Denies: Hx Diabetes Mellitus Type 1, Hx Diabetes Mellitus Type 2 Renal/ Medical History: Denies: Hx Peritoneal Dialysis GI Medical History: Reports: Hx Hiatal Hernia, Hx Ulcer. Denies: Hx Hepatitis Musculoskeletal Medical History: Reports Hx Arthritis, Reports Hx Fibromyalgia Psychiatric Medical History: Reports: Hx Bipolar Disorder Infectious Medical History: Denies: Hx Hepatitis Past Surgical History: Reports: Hx Breast Surgery - "plugged milk duct removed", Hx Hysterectomy. Denies: Hx Mastectomy, Hx Open Heart Surgery, Hx Pacemaker - Immunizations Hx Diphtheria, Pertussis, Tetanus Vaccination: Yes Hx Pneumococcal Vaccination: 05/14/11 Review of Systems - Review of Systems -: Yes All other systems reviewed and negative Physical Exam - Vital signs Vitals: Temp Pulse Resp BP Pulse Ox 99.6 F 100 24 H 107/66 94 10/09/19 13:55 10/09/19 13:55 10/09/19 13:55 10/09/19 13:55 10/09/19 13:55 - Notes Notes: PHYSICAL EXAMINATION: GENERAL: Well-appearing, well-nourished and in no acute distress. HEAD: Atraumatic, normocephalic. EYES: Pupils equal round and reactive to light, extraocular movements intact, sc randell anicteric, conjunctiva are normal. ENT: Nares patent and without discharge. oropharynx clear without exudates. No tonsilar hypertrophy or erythema. Moist mucous membranes. NECK: Normal range of motion, supple without lymphadenopathy LUNGS: Breath sounds clear to auscultation bilaterally and equal. No wheezes rales or rhonchi. HEART: Regular rate and rhythm without murmurs, rubs, gallops. ABDOMEN: Soft, nondistended abdomen. No guarding, no rebound. Normal bowel sounds present. No CVA tenderness bilaterally. + reproducible RUQ tenderness. Musculoskeletal: FROM to passive/active. Strength 5+/5. Extremities: No cyanosis, clubbing, or edema b/l. Peripheral pulses 2+. Capillary refill less than 3 seconds. NEUROLOGICAL: Normal speech, normal gait. PSYCH: Normal mood, normal affect. SKIN: Warm, Dry, normal turgor, no rashes or lesions noted. Course - Re-evaluation Re-evalutation: 10/09/19 19:10 I did speak with the surgeon, Dr. Lucas, regarding consult for the patient and she has a 17.9 white count and sludge in her gallbladder without other evidence of cholecystitis at this time. She does continue to have right upper quadrant pain. 10/09/19 19:33 Dr. Lucas will admit and perform a cholecystectomy. Patient is in agreement with plan. - Vital Signs Vital signs: Temp Pulse Resp BP Pulse Ox 99.6 F 100 24 H 107/66 94 10/09/19 13:55 10/09/19 13:55 10/09/19 13:55 10/09/19 13:55 10/09/19 13:55 - Laboratory Result Diagrams: 10/09/19 14:30 10/09/19 14:30 Laboratory results interpreted by me: 10/09/19 10/09/19 14:30 17:12 WBC 17.9 H MCH 33.8 H RDW 14.1 H Absolute Neuts (auto) 14.3 H Seg Neutrophils % 80.0 H Leukocyte Esterase Rfl TRACE H Discharge - Discharge Clinical Impression: RUQ pain Condition: Stable Disposition: ADMITTED INPATIENT Admitting Provider: Surgicalist - Dr. Lucas Unit Admitted: Surgical Floor Referrals: KAY GOMEZ MD [Primary Care Provider] - Follow up as needed
[2019-10-09 17:35] LABS: APPEARANCE,URINE SLIGHTLY-CLOUDY; BILIRUBIN,URINE NEGATIVE (NEGATIVE); COLOR,URINE YELLOW; GLUCOSE, URINE NEGATIVE (NEGATIVE); KETONES,URINE NEGATIVE (NEGATIVE); PROTEIN,URINE NEGATIVE (NEGATIVE); URINE SPECIFIC GRAVITY 1.006; UROBILINOGEN,URINE NEGATIVE mg/dL (<2.0)
--- NOTE | 2019-10-09 17:39 | RADIOLOGY REPORT (SQ) ---
EXAM DESCRIPTION: KUB/ABDOMEN (SINGLE VIEW) COMPLETED DATE/TIME: 10/09/2019 5:21 pm REASON FOR STUDY: abd pain COMPARISON: None. NUMBER OF VIEWS: One view. TECHNIQUE: Supine radiographic image of the abdomen acquired. LIMITATIONS: None. FINDINGS: BOWEL GAS PATTERN: Normal bowel gas pattern. No dilated loops. CALCIFICATIONS: No suspicious calcifications. SOFT TISSUES: No gross mass or suggestion of organomegaly. HARDWARE: None in the abdomen. BONES: No acute fracture. No worrisome bone lesions. OTHER: No other significant finding. IMPRESSION: NO RADIOGRAPHIC EVIDENCE FOR ACUTE ABDOMINAL DISEASE. TECHNICAL DOCUMENTATION: JOB ID: [id number] [employer]- All Rights Reserved Reading location - IP/workstation name: [email or web address]
[2019-10-09 17:56] LABS: HYALINE CASTS, URINE RARE /LPF
--- NOTE | 2019-10-09 18:07 | RADIOLOGY REPORT (SQ) ---
EXAM DESCRIPTION: U/S ABDOMEN LIMITED W/O DOP COMPLETED DATE/TIME: 10/09/2019 5:56 pm REASON FOR STUDY: RUQ pain COMPARISON: None. TECHNIQUE: Dynamic and static grayscale images acquired of the abdomen and recorded on PACS. Additio nal selected color Doppler and spectral images recorded. LIMITATIONS: Body habitus. Limited visualization. Poor acoustical window and overlying bowel gas. FINDINGS: PANCREAS: Limited visualization. no masses seen LIVER: Normal size Moderate to marked fatty infiltration. No focal masses. LIVER VASCULATURE: Normal directional flow of the main portal vein and hepatic veins. GALLBLADDER: Sludge. No stones. Normal wall thickness. No pericholecystic fluid. ULTRASOUND-DETECTED THOMAS'S SIGN: Positive. INTRAHEPATIC DUCTS AND COMMON DUCT: CBD and intrahepatic ducts normal caliber. No filling defects. INFERIOR VENA CAVA: Obscured. AORTA: Obscured. RIGHT KIDNEY: Normal size. Normal echogenicity. No solid or suspicious masses. No hydronephros is. No calcifications. PERITONEAL AND RIGHT PLEURAL SPACE: No ascites or effusions. OTHER: No other significant findings. IMPRESSION: Technical limitations. Sludge in the gallbladder. Positive Thomas's sign but no other evidence of acute cholecystitis. TECHNICAL DOCUMENTATION: JOB ID: [id number] 2010 [employer]- All Rights Reserved Reading location - IP/workstation name: [email or web address]
[2019-10-09] MEDS ORDERED: NORMAL SALINE 1000 ML 1,000 ML IV ONE (19:08)
--- NOTE | 2019-10-09 19:42 | PDOC H&P ---
History of Present Illness Admission Date/PCP: KAY GOMEZ MD History of Present Illness: DONAVAN HENSLEY is a 64 year old female female with past medical history of scleroderma, fibromyalgia, arthritis, scoliosis, spinal stenosis, bicuspid aortic valve, hypertension, hyperlipidemia, who presents with chief complaint of right upper quadrant pain. Patient states that on Monday she was sitting in recliner and bent over to cotton picker an object but did not have immediate pain. The pain started the day after to her RUQ. She states that she has history of 3 broken ribs in that same location, and that her pain feels similar in nature to those prior episodes. She has pain medications at home for her chronic back pain, and has been taking 2 Soma a day for her pain with mild relief. She denies any changes in bladder function, but states that she is now, constipated from her pain medications. Currently she endorses some shortness of breath but is only when she feels pain that takes "her breath away", as well as some nausea but denies any fevers or chills. She states that the pain worsens with any movement and is only relieved minimally when lying still supine. Denies any headache, fever, neck pain, URI, sore throat, chest pain, palpitations, syncope, cough, shortness of breath, wheeze, dyspnea, vomiting/diarrhea, urinary retention, dysuria, hematuria, or rash. Past Medical History Cardiac Medical History: Reports: Coronary Artery Disease - MITRAL VALVE PROLAPSE, Hypertension Denies: Myocardial Infarction Pulmonary Medical History: Denies: Asthma Neurological Medical History: Reports: Migraine Denies: Seizures Endocrine Medical History: Denies: Diabetes Mellitus Type 1, Diabetes Mellitus Type 2 GI Medical History: Reports: Hiatal Hernia Denies: Hepatitis Musculoskeltal Medical History: Reports: Arthritis, Fibromyalgia Psychiatric Medical History: Reports: Bipolar Disorder Hematology: Denies: Anemia, Sickle Cell Disease Past Surgical History Past Surgical History: Reports: Hysterectomy Denies: Amputation, Mastectomy, Pacemaker Social History Smoking Status: Current Every Day Smoker Family History Family History: Reviewed & Not Pertinent Parental Family History Reviewed: No Children Family History Reviewed: NA Sibling(s) Family History Reviewed.: NA Medication/Allergy Home Medications: Gabapentin [Neurontin 300 Mg Capsule] 600 mg PO BID 07/04/11 Lamotrigine [Lamictal] 25 mg PO BID 07/04/11 Zolpidem Tartrate 10 mg PO HSP PRN 07/04/11 Ondansetron [Zofran Odt 4 mg Tablet] 1 tab PO Q6H PRN #10 tab.rapdis 06/06/12 Albuterol Sulfate [Proair HFA Inhalation Aerosol 8.5 gm MDI] 2 puff IH Q4H PRN #1 mdi 07/31/17 Clonidine HCl [Clonidine HCl ER] 0.1 mg PO Q12 06/18/19 Diazepam [Valium 5 mg Tablet] 5 mg PO QIDP PRN 06/18/19 Difluprednate [Durezol] 1 drop OP ASDIR PRN 06/18/19 Gabapentin [Neurontin 300 mg Capsule] 300 mg PO Q8 06/18/19 Lisinopril 30 mg PO DAILY 06/18/19 Lorazepam [Ativan] 1 mg PO DAILY PRN 06/18/19 Moxifloxacin HCl [Moxifloxacin] 1 drop OP ASDIR PRN 06/18/19 Nepafenac [Ilevro] 1 drop OP ASDIR PRN 06/18/19 Omeprazole 20 mg PO DAILY 06/18/19 Propranolol HCl [Inderal 20 mg Tablet] 20 mg PO Q12 06/18/19 Simvastatin 40 mg PO DAILY 06/18/19 Amlodipine Besylate [Norvasc 10 mg Tablet] 10 mg PO DAILY #30 tablet 08/23/19 Allergies/Adverse Reactions: aspirin Allergy (Verified 10/09/19 13:58) diclofenac potassium [From Cataflam] Allergy (Verified 10/09/19 13:58) Hives naproxen [Naproxen] Allergy (Verified 10/09/19 13:58) tramadol HCl [From Ultram ER] Allergy (Verified 10/09/19 13:58) Review of Systems Constitutional: PRESENT: fatigue Eyes: ABSENT: as per HPI, visual disturbances, other Ears: ABSENT: as per HPI, hearing changes, other Nose, Mouth, and Throat: ABSENT: as per HPI, headache(s), mouth pain, sore throat, vertigo, other Breasts: ABSENT: as per HPI, other Cardiovascular: ABSENT: as per HPI, chest pain, dyspnea on exertion, edema, orthropnea, palpitations, other Respiratory: ABSENT: as per HPI, cough, dyspnea, hemoptysis, sputum, other Gastrointestinal: PRESENT: abdominal pain, bloating, constipation Genitourinary: ABSENT: as per HPI, difficulty urinating, dysuria, hematuria, nocturia, other Musculoskeletal: ABSENT: as per HPI, back pain, deformity, joint swelling, muscle weakness, other Integumentary: ABSENT: as per HPI, diaphoresis, erythema, lesions, pruritus, rash, wounds, other Neurological: ABSENT: as per HPI, abnormal gait, abnormal movements, abnormal speech, confusion, convulsions, dizziness, focal weakness, frequent falls, lack of coordination, memory loss, numbness, paresthesias, restless legs, syncope, tingling, tremor(s), vertigo, weakness, other Psychiatric: ABSENT: as per HPI, anxiety, depression, hallucinations, homidical ideation, suicidal ideation, other Endocrine: ABSENT: as per HPI, cold intolerance, flushing, heat intolerance, menstrual abnormalities, polydipsia, polyphagia, polyuria, other Hematologic/Lymphatic: ABSENT: as per HPI, easy bleeding, easy bruising, lymphadenopathy, other Allergic/Immunologic: ABSENT: as per HPI, seasonal rhinorrhea, other Physical Exam Vital Signs: Temp Pulse Resp BP Pulse Ox 99.6 F 100 24 H 107/66 94 10/09/19 13:55 10/09/19 13:55 10/09/19 13:55 10/09/19 13:55 10/09/19 13:55 Intake & Output 10/08/19 10/09/19 10/10/19 06:59 06:59 06:59 Weight 84 kg General appearance: PRESENT: mild distress Head exam: PRESENT: normocephalic Eye exam: PRESENT: EOMI Ear exam: PRESENT: normal external ear exam Mouth exam: PRESENT: moist Neck exam: PRESENT: full ROM Respiratory exam: PRESENT: clear to auscultation dacia Cardiovascular exam: PRESENT: RRR Pulses: PRESENT: +2 pedal pulses bilateral Breast: PRESENT: Normal GI/Abdominal exam: PRESENT: tenderness - ruq tenderness, guarding and + flores's min pain iwth compression of lower costal margin Rectal exam: PRESENT: deferred Extremities exam: PRESENT: full ROM Musculoskeletal exam: PRESENT: ambulatory Neurological exam: PRESENT: alert, awake, oriented to person, oriented to place Psychiatric exam: PRESENT: appropriate affect Skin exam: PRESENT: dry Results Laboratory Results: 10/09/19 14:30 10/09/19 14:30 10/09/19 10/09/19 10/09/19 14:30 14:30 17:12 WBC 17.9 H RBC 3.97 Hgb 13.4 Hct 38.0 MCV 96 MCH 33.8 H MCHC 35.3 RDW 14.1 H Plt Count 364 Seg Neutrophils % 80.0 H Sodium 138.6 Potassium 4.2 Chloride 103 Carbon Dioxide 26 Anion Gap 10 BUN 13 Creatinine 0.92 Est GFR ( Amer) > 60 Glucose 101 Calcium 9.8 Total Bilirubin 1.0 AST 22 Alkaline Phosphatase 99 Total Protein 7.9 Albumin 4.6 Lipase 54.5 Urine Color YELLOW Urine Appearance SLIGHTLY-CLOUDY Urine pH 6.0 Ur Specific Crimora 1.006 Urine Protein NEGATIVE Urine Glucose (UA) NEGATIVE Urine Ketones NEGATIVE Urine Blood NEGATIVE Ur Squamous Epith Cells MANY Impressions: Ribs w/Chest X-Ray 10/09/19 14:06 IMPRESSION: Basilar atelectasis. Small right effusion. No pneumothorax. No displaced rib fractures. Abdomen Ultrasound 10/09/19 16:55 IMPRESSION: Technical limitations. Sludge in the gallbladder. Positive Flores's sign but no other evidence of acute cholecystitis. KUB X-Ray 10/09/19 17:04 IMPRESSION: NO RADIOGRAPHIC EVIDENCE FOR ACUTE ABDOMINAL DISEASE. Assessment & Plan - Plan Summary Plan Summary: impression, acute cholecystitis with sludge in gb, significant pain in ruq nausea recommend cholecystectomy risks benifits discussed iw pt who agrees to proceed.
[2019-10-09] MEDS ORDERED: FENTANYL CITRATE INJ/PF 100 MCG/2 ML AMPUL ONE ×2 (20:29→22:48)
[2019-10-09] MEDS ORDERED: DEXAMETHASONE SOD PHOSPHATE INJ 4 MG/1 ML VIAL ONE (20:29)
[2019-10-09] MEDS ORDERED: HYDROMORPHONE HCL INJ/PF 2 MG/ML AMPULE ONE (20:29)
[2019-10-09] MEDS ORDERED: SUGAMMADEX SODIUM 200 MG/2 ML SDV IV ONE (20:29)
[2019-10-09] MEDS ORDERED: PROPOFOL INJ 200 MG/20 ML VIAL IV ONE (20:30)
[2019-10-09] MEDS ORDERED: BUPIVACAINE HCL 0.5%-EPI 1:200000 INJ/PF 30 ML VIAL ONE (20:44)
[2019-10-09] MEDS ORDERED: CEFAZOLIN INJ 1 GM VIAL ONE (20:45)
[2019-10-09] MEDS ORDERED: METRONIDAZOLE 500 MG/NS RTU 500 MG/100 ML RTUPB IV ONE (20:46)
[2019-10-09] MEDS ORDERED: MIDAZOLAM 2 MG/2 ML INJ ONE (20:59)
[2019-10-09] MEDS ORDERED: DEXMEDETOMIDINE INJ 80 MCG/20 ML VIAL IV ONE (21:22)
[2019-10-09] MEDS ORDERED: OXYCODONE-ACETAMINOPHEN 5-325 MG TABLET PO PRN ×2 (21:55)
[2019-10-09] MEDS ORDERED: DIPHENHYDRAMINE HCL 50 MG/ML VIAL IV PRN (21:55)
[2019-10-09] MEDS ORDERED: FENTANYL CITRATE INJ/PF 100 MCG/2 ML AMPUL IV PRN ×3 (21:55)
[2019-10-09] MEDS ORDERED: MEPERIDINE HCL/PF INJ 25 MG/1 ML DISP.SYRIN IV PRN (21:55)
[2019-10-09] MEDS ORDERED: PROMETHAZINE HCL INJ 25 MG/1 ML VIAL IV PRN ×2 (21:55)
[2019-10-09] MEDS ORDERED: MORPHINE SULFATE 10 MG/ML INJ IV PRN ×2 (21:55→22:26)
[2019-10-09] MEDS ORDERED: ONDANSETRON HCL INJ/PF 4 MG/2 ML SDV IV PRN ×2 (21:55→22:26)
[2019-10-09] MEDS ORDERED: ALBUTEROL SULFATE HFA (90 MCG/PUFF) 8 GM MDI IH ONE (22:00)
--- NOTE | 2019-10-09 22:25 | Operative Report ---
Nonrecallable Operative Report DATE OF SURGERY: 10/09/19 PREOPERATIVE DIAGNOSIS: Cholecystitis POSTOPERATIVE DIAGNOSIS: Cholecystitis OPERATION: Laparoscopic cholecystectomy SURGEON: ELIZABETH GALEAS ANESTHESIA: GA TISSUE REMOVED OR ALTERED: Gallbladder COMPLICATIONS: None ESTIMATED BLOOD LOSS: 20 cc INTRAOPERATIVE FINDINGS: See note PROCEDURE: After obtaining informed consent, the patient was taken to the operating room. General Anesthesia was induced; the arms were extended, and the abdomen was exposed, and prepped and draped in a sterile fashion. Instrumentation was set up for laparoscopic cholecystectomy. Surgical plan and surgical timeout were conducted. A vertical incision was made above the umbilicus, and a verres needle was inserted uneventfully into the peritoneal cavity. Pneumoperitoneum was established. The verres needle was removed and a 10 mm trocar was inserted and a 10 mm laparoscope was inserted. Visualization of the peritoneal cavity confirmed safe uneventful entry. Under direct visualization 3 additional 5 mm ports were established, one in the subxiphoid position and second in the subcostal position. Visualization of the hepatobiliary anatomy revealed no anatomic variations. A grasper was placed on the fundus of the gallbladder and the gallbladder is elevated over the right surface of the liver; a second grasper was used to grasp the infundibulum of the gallbladder. The neck of the gallbladder and junction with the cystic duct was dissected out. The Cystic artery was in its usual location medial and cephalad to the cystic duct. The cystic artery was surrounded with a right angle clamp, clipped twice proximally and divided with laparoscopic scissors. We now opened the triangle of Calot by dividing the peritoneal reflection on both the medial and lateral sides of the cystic duct infundibular junction. The critical view was obtained. We now milked the cystic duct of any possible stones, clipped the cystic duct approximately 2 times once distally and divided with scissors. The gallbladder was now removed from the undersurface of the liver using hook cautery dissection. Graspers were repositioned and the gallbladder was removed uneventfully from the abdominal cavity through the super umbilical port site incision. The specimen was examined, then passed off to pathology for permanent analysis. We returned to the peritoneal cavity check for bleeding, and evidence of bile leak, and there was none. We Confirmed satisfactory placement of clips on cystic duct and cystic artery were secured . At this point we felt the operation was complete. The subcutaneous tissue was then anesthetized with quarter percent Marcaine Sponge and needle counts are correct. All ports removed under direct visualization pneumoperitoneum evacuated, and 5 mm port wounds closed with 3-0 Vicryl suture, benzoin and Steri-Strips. The patient was extubated, and taken to the recovery room in stable condition.
[2019-10-09] MEDS ORDERED: ACETAMINOPHEN 1,000 MG/100 ML RTUPB IV ONE (22:47)
[2019-10-09] MEDS ORDERED: IPRATROPIUM/ALBUTEROL 0.5-2.5 MG/3 ML AMPUL NEB ONE (23:35)
[2019-10-10] MEDS: POTASSI CL 20 MEQ/D5-1/2NS 1L 1,000 ML IV PRN ×2 (00:59→14:45)
[2019-10-10 06:53] LABS: ABSOLUTE LYMPHOCYTES (AUTO) 1.6 10^3/uL (0.5-4.7); ABSOLUTE MONOCYTES (AUTO) 0.2 10^3/uL (0.1-1.4); ABSOLUTE NEUT (AUTO) 15.4 10^3/uL (1.7-8.2); BASOPHILS % (AUTO) 0.1 % (0-2); HEMATOCRIT 34.9 % (36.0-47.0); HEMOGLOBIN 12.4 g/dL (12.0-15.5); LYMPHOCYTES % (AUTO) 9.1 % (13-45); MEAN CORPUSCULAR HEMOGLOBIN 33.7 pg (27.0-33.4); MEAN CORPUSCULAR HGB CONC 35.5 g/dL (32.0-36.0); MEAN CORPUSCULAR VOLUME 95 fl (80-97); MONOCYTES % (AUTO) 1.4 % (3-13); PLATELET COUNT 328 10^3/uL (150-450); RED BLOOD COUNT 3.67 10^6/uL (3.72-5.28); RED CELL DISTRIBUTION WIDTH 13.8 % (11.5-14.0); SEGMENTED NEUTROPHILS % (AUTO) 89.4 % (42-78); TOTAL CELLS COUNTED % (AUTO) 100 %; WHITE BLOOD COUNT 17.2 10^3/uL (4.0-10.5)
[2019-10-10 07:00] LABS: ANION GAP 11 (5-19); BLOOD UREA NITROGEN 14 mg/dL (7-20); CALCIUM 9.4 mg/dL (8.4-10.2); CARBON DIOXIDE 21 mmol/L (22-30); CHLORIDE 108 mmol/L (98-107); GLUCOSE 129 mg/dL (75-110); POTASSIUM 4.7 mmol/L (3.6-5.0)
[2019-10-10] MEDS ORDERED: NICOTINE 7 MG/24 HR PATCH.TD24 TD PRN (07:40)
--- NOTE | 2019-10-10 07:43 | PDOC PROGRESS REPORT ---
Subjective Progress Note for:: 10/10/19 Subjective:: feels ok, min pain Reason For Visit: RUQ PAIN Physical Exam Vital Signs: Temp Pulse Resp BP Pulse Ox 97.7 F 76 17 106/50 L 93 10/10/19 03:36 10/10/19 03:36 10/10/19 03:36 10/10/19 03:36 10/10/19 03:36 Intake & Output 10/09/19 10/10/19 10/11/19 06:59 06:59 06:59 Intake Total 2440 Output Total 220 Balance 2220 Weight 84 kg General appearance: PRESENT: no acute distress Head exam: PRESENT: normocephalic Eye exam: PRESENT: EOMI Ear exam: PRESENT: normal external ear exam Mouth exam: PRESENT: moist Teeth exam: PRESENT: poor dentation Neck exam: PRESENT: full ROM Respiratory exam: PRESENT: clear to auscultation dacia Cardiovascular exam: PRESENT: RRR Pulses: PRESENT: normal radial pulses, normal femoral pulses Vascular exam: PRESENT: normal capillary refill Breast: PRESENT: Normal GI/Abdominal exam: PRESENT: soft Rectal exam: PRESENT: deferred Extremities exam: PRESENT: full ROM Musculoskeletal exam: PRESENT: full ROM Neurological exam: PRESENT: alert, awake, oriented to person, oriented to place Psychiatric exam: PRESENT: appropriate affect Skin exam: PRESENT: dry Results Laboratory Results: 10/10/19 06:25 10/10/19 06:25 10/09/19 10/09/19 10/09/19 14:30 14:30 17:12 WBC 17.9 H RBC 3.97 Hgb 13.4 Hct 38.0 MCV 96 MCH 33.8 H MCHC 35.3 RDW 14.1 H Plt Count 364 Seg Neutrophils % 80.0 H Sodium 138.6 Potassium 4.2 Chloride 103 Carbon Dioxide 26 Anion Gap 10 BUN 13 Creatinine 0.92 Est GFR ( Amer) > 60 Glucose 101 Calcium 9.8 Total Bilirubin 1.0 AST 22 Alkaline Phosphatase 99 Total Protein 7.9 Albumin 4.6 Lipase 54.5 Urine Color YELLOW Urine Appearance SLIGHTLY-CLOUDY Urine pH 6.0 Ur Specific Sarita 1.006 Urine Protein NEGATIVE Urine Glucose (UA) NEGATIVE Urine Ketones NEGATIVE Urine Blood NEGATIVE Ur Squamous Epith Cells MANY 10/10/19 10/10/19 06:25 06:25 WBC 17.2 H RBC 3.67 L Hgb 12.4 Hct 34.9 L MCV 95 MCH 33.7 H MCHC 35.5 RDW 13.8 Plt Count 328 Seg Neutrophils % 89.4 H Sodium 140.0 Potassium 4.7 Chloride 108 H Carbon Dioxide 21 L Anion Gap 11 BUN 14 Creatinine 0.83 Est GFR ( Amer) > 60 Glucose 129 H Calcium 9.4 Total Bilirubin AST Alkaline Phosphatase Total Protein Albumin Lipase Urine Color Urine Appearance Urine pH Ur Specific Sarita Urine Protein Urine Glucose (UA) Urine Ketones Urine Blood Ur Squamous Epith Cells Impressions: Ribs w/Chest X-Ray 10/09/19 14:06 IMPRESSION: Basilar atelectasis. Small right effusion. No pneumothorax. No displaced rib fractures. Abdomen Ultrasound 10/09/19 16:55 IMPRESSION: Technical limitations. Sludge in the gallbladder. Positive Thomas's sign but no other evidence of acute cholecystitis. KUB X-Ray 10/09/19 17:04 IMPRESSION: NO RADIOGRAPHIC EVIDENCE FOR ACUTE ABDOMINAL DISEASE. Assessment & Plan - Plan Summary Plan Summary: s/p aissatou edwards feels ok this am however wbc still 17k and o2sat sl low at 89% plan start vancomycin insentive spirometer cxr.
[2019-10-10] MEDS ORDERED: VANCOMYCIN HCL 0 MG in DEXTROSE 5%-WATER 250 ML IV NR (07:45)
[2019-10-10] MEDS: FAMOTIDINE 20 MG TABLET PO SCH ×3 (08:35→21:21)
[2019-10-10] MEDS: DOCUSATE SODIUM 100 MG CAPSULE PO SCH ×2 (09:05→17:42)
--- NOTE | 2019-10-10 09:19 | RADIOLOGY REPORT (SQ) ---
EXAM DESCRIPTION: CHEST 2 VIEWS COMPLETED DATE/TIME: 10/10/2019 8:33 am REASON FOR STUDY: r/o pneumonia COMPARISON: Previous day. EXAM PARAMETERS: NUMBER OF VIEWS: two views TECHNIQUE: Digital Frontal and Lateral radiographic views of the chest acquired. RADIATION DOSE: NA LIMITATIONS: none FINDINGS: LUNGS AND PLEURA: Small pleural effusions and associated dependent airspace disease both l ower lobes. MEDIASTINUM AND HILAR STRUCTURES: No masses or contour abnormalities. HEART AND VASCULAR STRUCTURES: Heart normal size. No evidence for failure. BONES: No acute findings. HARDWARE: None in the chest. OTHER: No other significant finding. IMPRESSION: Small effusions and dependent airspace disease suspicious for pneumonia. TECHNICAL DOCUMENTATION: JOB ID: [id number] 2010 [employer]- All Rights Reserved Reading location - IP/workstation name: [email or web address]
[2019-10-10] MEDS: VANCOMYCIN HCL 1,000 MG in DEXTROSE 5%-WATER 250 ML IV SCH ×3 (10:32→23:07)
[2019-10-10] MEDS: OXYCODONE-ACETAMINOPHEN 5-325 MG TABLET PO PRN ×2 (11:52→17:42)
[2019-10-11] MEDS: OXYCODONE-ACETAMINOPHEN 5-325 MG TABLET PO PRN (07:36)
--- NOTE | 2019-10-11 09:04 | PDOC PROGRESS REPORT ---
Subjective Progress Note for:: 10/11/19 Subjective:: feels better, less abd pain dhara reg diet Reason For Visit: CHOLECYSTITIS Physical Exam Vital Signs: Temp Pulse Resp BP Pulse Ox 97.8 F 67 16 141/75 H 96 10/11/19 07:27 10/11/19 07:27 10/11/19 07:27 10/11/19 07:27 10/11/19 07:27 Intake & Output 10/10/19 10/11/19 10/12/19 06:59 06:59 06:59 Intake Total 2440 2510 Output Total 220 Balance 2220 2510 Weight 84 kg 86.137 kg General appearance: PRESENT: no acute distress Head exam: PRESENT: normocephalic Ear exam: PRESENT: normal external ear exam Mouth exam: PRESENT: moist Neck exam: PRESENT: full ROM Respiratory exam: PRESENT: clear to auscultation dacia Cardiovascular exam: PRESENT: RRR Pulses: PRESENT: normal femoral pulses Vascular exam: PRESENT: normal capillary refill GI/Abdominal exam: PRESENT: soft Rectal exam: PRESENT: deferred Extremities exam: PRESENT: full ROM Musculoskeletal exam: PRESENT: full ROM Neurological exam: PRESENT: alert, awake, oriented to person, oriented to place Psychiatric exam: PRESENT: appropriate affect Skin exam: PRESENT: dry Results Laboratory Results: 10/10/19 06:25 10/10/19 06:25 Impressions: Ribs w/Chest X-Ray 10/09/19 14:06 IMPRESSION: Basilar atelectasis. Small right effusion. No pneumothorax. No displaced rib fractures. Abdomen Ultrasound 10/09/19 16:55 IMPRESSION: Technical limitations. Sludge in the gallbladder. Positive Mu rphy's sign but no other evidence of acute cholecystitis. KUB X-Ray 10/09/19 17:04 IMPRESSION: NO RADIOGRAPHIC EVIDENCE FOR ACUTE ABDOMINAL DISEASE. Chest X-Ray 10/10/19 00:00 IMPRESSION: Small effusions and dependent airspace disease suspicious for pneumonia. Assessment & Plan - Plan Summary Plan Summary: doing better with less abd pain dhara reg diet will recheck wbc today, if decreased and o2 sat stable above =90 will dc home on po abx to rx poss rt sided pneumonia
[2019-10-11] MEDS: DOCUSATE SODIUM 100 MG CAPSULE PO SCH (09:06)
[2019-10-11 09:29] LABS: ABSOLUTE BASOPHILS # (AUTO) 0.1 10^3/uL (0.0-0.2); ABSOLUTE EOSINOPHILS # (AUTO) 0.1 10^3/uL (0.0-0.6); ABSOLUTE LYMPHOCYTES (AUTO) 4.4 10^3/uL (0.5-4.7); ABSOLUTE MONOCYTES (AUTO) 0.5 10^3/uL (0.1-1.4); BASOPHILS % (AUTO) 0.5 % (0-2); EOSINOPHILS % (AUTO) 0.7 % (0-6); HEMATOCRIT 34.1 % (36.0-47.0); HEMOGLOBIN 11.7 g/dL (12.0-15.5); LYMPHOCYTES % (AUTO) 36.3 % (13-45); MEAN CORPUSCULAR HEMOGLOBIN 33.4 pg (27.0-33.4); MEAN CORPUSCULAR HGB CONC 34.4 g/dL (32.0-36.0); MEAN CORPUSCULAR VOLUME 97 fl (80-97); MONOCYTES % (AUTO) 4.5 % (3-13); PLATELET COUNT 324 10^3/uL (150-450); RED BLOOD COUNT 3.52 10^6/uL (3.72-5.28); RED CELL DISTRIBUTION WIDTH 14.7 % (11.5-14.0); TOTAL CELLS COUNTED % (AUTO) 100 %; WHITE BLOOD COUNT 12.1 10^3/uL (4.0-10.5)
[2019-10-11] MEDS ORDERED: AMOXICILLIN TR/POT CLAVULANATE 875-125 MG TAB PO SCH (10:00)
[2019-10-11] MEDS: FAMOTIDINE 20 MG TABLET PO SCH (10:27)
[2019-10-11 11:54] VITALS: BP 117/62
--- NOTE | 2019-10-11 11:59 | PDOC DISCHARGE SUMMARY ---
General - Admit/Disc Date/PCP Admission Date/Primary Care Provider: 10/09/19 20:05 KAY GOMEZ MD Discharge Date: 10/11/19 - Discharge Diagnosis Final Diagnosis: cholecystitis, possible pneumonia - Assessment Summary: Marcus is a 64-year-old female who was admitted to the hospital with right upper quadrant pain with and a white blood count of 17,000. Ultrasound showed thi ckened gallbladder wall with gallbladder sludge. She was quite tender in the right upper quadrant and therefore taken to surgery for laparoscopic cholecystectomy. Following day she continued to improve however her white count remained elevated at 17,000 range. Follow-up chest x-ray revealed a questionable patchy density in the right lower lobe however she had had previous pneumonias and known scar tissue in that lung field. Because of this she was empirically started on oral antibiotics On postop day 2 she was markedly improved she had no cough her O2 saturation was in the normal range she was tolerating a regular diet and ready for discharge home. She will be started on Augmentin 875 mg p.o. twice daily She will follow-up with her primary physician as an outpatient for follow-up ch est x-ray to make sure that the small infiltrate in the right lower lobe is cleared. And then she will follow-up with me in 7 to 10 days for routine postoperative follow-up. - Additional Information Resuscitation Status: Full Code Discharge Diet: As Tolerated, Regular Discharge Activity: Balance Activity w/Rest, No Lifting Over 10 Pounds, No Lifting/Push/Pulling, No tub bath Referrals: ELIZABETH GALEAS MD [ACTIVE STAFF] - 10/21/19 8:00 am (Please follow up with Dr Galeas at [facility] on 10/21/19 at 8:00. If you have any questions please call the office directly at .) Prescriptions: Amoxicillin/Potassium Clav [Augmentin 875-125 Tablet] 1 tab PO Q12 10 Days tablet Home Medications: Lamotrigine [Lamictal] 100 mg PO DAILY 07/04/11 Clonidine HCl [Clonidine HCl ER] 0.1 mg PO Q12 06/18/19 Diazepam [Valium 5 mg Tablet] 5 mg PO QIDP PRN 06/18/19 Gabapentin [Neurontin 300 mg Capsule] 600 mg PO Q8 06/18/19 Lisinopril 30 mg PO DAILY 06/18/19 Lorazepam [Ativan] 1 mg PO DAILYP PRN 06/18/19 Omeprazole 40 mg PO DAILY 06/18/19 Simvastatin 40 mg PO QPM 06/18/19 Amlodipine Besylate [Norvasc 10 mg Tablet] 10 mg PO DAILY #30 tablet 08/23/19 Albuterol Sulfate [Ventolin Hfa 8 gm Mdi] 2 puff IH Q4HP PRN 10/09/19 Carisoprodol [Soma] 350 mg PO TID 10/09/19 Chlorthalidone [Hygroton 25 mg Tablet] 50 mg PO DAILY 10/09/19 Levothyroxine Sodium [Synthroid 0.05 mg Tablet] 0.05 mcg PO DAILY 10/09/19 Zolpidem Tartrate 10 mg PO HSP PRN 10/09/19 Amoxicillin/Potassium Clav [Augmentin 875-125 Tablet] 1 tab PO Q12 10 Days tablet 10/11/19 History of Present Illiness History of Present Illness: DONAVAN HENSLEY is a 64 year old female female with past medical history of scleroderma, fibromyalgia, arthritis, scoliosis, spinal stenosis, bicuspid aortic valve, hypertension, hyperlipidemia, who presents with chief complaint of right upper quadrant pain. Patient states that on Monday she was sitting in recliner and bent over to berry picker an object but did not have immediate pain. The pain started the day after to her RUQ. She states that she has history of 3 broken ribs in that same location, and that her pain feels similar in nature to those prior episodes. She has pain medications at home for her chronic back pain, and has been taking 2 Soma a day for her pain with mild relief. She denies any changes in bladder function, but states that she is now, constipated from her pain medications. Currently she endorses some shortness of breath but is only when she feels pain that takes "her breath away", as well as some nausea but denies any fevers or chills. She states that the pain worsens with any movement and is only relieved minimally when lying still supine. Denies any headache, fever, neck pain, URI, sore throat, chest pain, p alpitations, syncope, cough, shortness of breath, wheeze, dyspnea, vomiting/diarrhea, urinary retention, dysuria, hematuria, or rash. Physical Exam Vital Signs: Temp Pulse Resp BP Pulse Ox 97.8 F 67 16 107/66 96 10/11/19 10:33 10/11/19 10:33 10/11/19 10:33 10/11/19 10:33 10/11/19 10:33 Intake & Output 10/10/19 10/11/19 10/12/19 06:59 06:59 06:59 Intake Total 2440 2510 Output Total 220 Balance 2220 2510 Weight 84 kg 86.137 kg Results Laboratory Results: WBC 12.1 10^3/uL (4.0-10.5) H 10/11/19 09:07 RBC 3.52 10^6/uL (3.72-5.28) L 10/11/19 09:07 Hgb 11.7 g/dL (12.0-15.5) L 10/11/19 09:07 Hct 34.1 % (36.0-47.0) L 10/11/19 09:07 MCV 97 fl (80-97) 10/11/19 09:07 MCH 33.4 pg (27.0-33.4) 10/11/19 09:07 MCHC 34.4 g/dL (32.0-36.0) 10/11/19 09:07 RDW 14.7 % (11.5-14.0) H 10/11/19 09:07 Plt Count 324 10^3/uL (150-450) 10/11/19 09:07 Lymph % (Auto) 36.3 % (13-45) 10/11/19 09:07 Gallia % (Auto) 4.5 % (3-13) 10/11/19 09:07 Eos % (Auto) 0.7 % (0-6) 10/11/19 09:07 Baso % (Auto) 0.5 % (0-2) 10/11/19 09:07 Absolute Neuts (auto) 7.0 10^3/uL (1.7-8.2) 10/11/19 09:07 Absolute Lymphs (auto) 4.4 10^3/uL (0.5-4.7) 10/11/19 09:07 Absolute Monos (auto) 0.5 10^3/uL (0.1-1.4) 10/11/19 09:07 Absolute Eos (auto) 0.1 10^3/uL (0.0-0.6) 10/11/19 09:07 Absolute Basos (auto) 0.1 10^3/uL (0.0-0.2) 10/11/19 09:07 Seg Neutrophils % 58.0 % (42-78) 10/11/19 09:07 Sodium 140.0 mmol/L (137-145) 10/10/19 06:25 Potassium 4.7 mmol/L (3.6-5.0) 10/10/19 06:25 Chloride 108 mmol/L (98-107) H 10/10/19 06:25 Carbon Dioxide 21 mmol/L (22-30) L 10/10/19 06:25 Anion Gap 11 (5-19) 10/10/19 06:25 BUN 14 mg/dL (7-20) 10/10/19 06:25 Creatinine 0.83 mg/dL (0.52-1.25) 10/10/19 06:25 Est GFR ( Amer) > 60 (>60) 10/10/19 06:25 Est GFR (MDRD) Non-Af > 60 (>60) 10/10/19 06:25 Glucose 129 mg/dL (75-110) H 10/10/19 06:25 Calcium 9.4 mg/dL (8.4-10.2) 10/10/19 06:25 Total Bilirubin 1.0 mg/dL (0.2-1.3) 10/09/19 14:30 Direct Bilirubin 0.1 mg/dL (0.0-0.4) 10/09/19 14:30 Neonat Total Bilirubin Not Reportable 10/09/19 14:30 Neonat Direct Bilirubin Not Reportable 10/09/19 14:30 Neonat Indirect Bili Not Reportable 10/09/19 14:30 AST 22 U/L (14-36) 10/09/19 14:30 ALT 18 U/L (<35) 10/09/19 14:30 Alkaline Phosphatase 99 U/L (38-126) 10/09/19 14:30 Total Protein 7.9 g/dL (6.3-8.2) 10/09/19 14:30 Albumin 4.6 g/dL (3.5-5.0) 10/09/19 14:30 Lipase 54.5 U/L (23-300) 10/09/19 14:30 Urine Color YELLOW 10/09/19 17:12 Urine Appearance SLIGHTLY-CLOUDY 10/09/19 17:12 Urine pH 6.0 (5.0-9.0) 10/09/19 17:12 Ur Specific Ronda 1.006 10/09/19 17:12 Urine Protein NEGATIVE mg/dL (NEGATIVE) 10/09/19 17:12 Urine Glucose (UA) NEGATIVE mg/dL (NEGATIVE) 10/09/19 17:12 Urine Ketones NEGATIVE mg/dL (NEGATIVE) 10/09/19 17:12 Urine Blood NEGATIVE (NEGATIVE) 10/09/19 17:12 Urine Nitrite (Reflex) NEGATIVE (NEGATIVE) 10/09/19 17:12 Urine Bilirubin NEGATIVE (NEGATIVE) 10/09/19 17:12 Urine Urobilinogen NEGATIVE mg/dL (<2.0) 10/09/19 17:12 Leukocyte Esterase Rfl TRACE (NEGATIVE) H 10/09/19 17:12 Urine WBC 0-1 /HPF 10/09/19 17:12 Ur Squamous Epith Cells MANY /HPF 10/09/19 17:12 Hyaline Casts RARE /LPF 10/09/19 17:12 Urine Ascorbic Acid NEGATIVE (NEGATIVE) 10/09/19 17:12 Impressions: Ribs w/Chest X-Ray 10/09/19 14:06 IMPRESSION: Basilar atelectasis. Small right effusion. No pneumothorax. No displaced rib fractures. Abdomen Ultrasound 10/09/19 16:55 IMPRESSION: Technical limitations. Sludge in the gallbladder. Positive Thomas's sign but no other evidence of acute cholecystitis. KUB X-Ray 10/09/19 17:04 IMPRESSION: NO RADIOGRAPHIC EVIDENCE FOR ACUTE ABDOMINAL DISEASE. Chest X-Ray 10/10/19 00:00 IMPRESSION: Small effusions and dependent airspace disease suspicious for pneumonia.
== END 2019-10-11 12:50 | disposition home or self-care (01) ==
LOC: ER 13:18 → INTOOBSV 20:05 → EH 20:05 → 2N 23:26
PROVIDERS: ATTEND Surgery
DX: K81.1 Chronic cholecystitis (principal); M34.9 Systemic sclerosis, unspecified; M79.7 Fibromyalgia; M41.9 Scoliosis, unspecified; G89.29 Other chronic pain; M54.9 Dorsalgia, unspecified; R06.02 Shortness of breath; I10 Essential (primary) hypertension; E78.5 Hyperlipidemia, unspecified; M19.90 Unspecified osteoarthritis, unspecified site; I25.10 Atherosclerotic heart disease of native coronary artery without angina pectoris; J98.11 Atelectasis; F17.200 Nicotine dependence, unspecified, uncomplicated; Z87.01 Personal history of pneumonia (recurrent); Z79.899 Other long term (current) drug therapy; Z87.81 Personal history of (healed) traumatic fracture
CPT/HCPCS: 99285; 96360; 36415 ×3; 83690; 85025 ×3; 80048; 80053; 81001; 88304 ×2; 71046; 74018; 71101; 76705; 94799; 00790; 47562; G0378 ×4; J2250; J3490 ×7; J0690; A9270 ×7; J1100; J1885; J3010; J2270; J3480; J0330; J2405; J7060; J7030; J2704; J3370; J0131; J1170; J7620

== ENCOUNTER → 2020-08-26 | Outpatient (CLI) | payer MEDICARE ==
--- NOTE | 2020-08-26 12:05 | WOMENS IMAGING REPORT ---
EXAM DESCRIPTION: BILAT SCREENING MAMMO W/CAD IMAGES COMPLETED DATE/TIME: 08/26/2020 11:11 am REASON FOR STUDY: Z12.31 ENCOUNTER FOR SCREENING MAMMOGRAM FOR MALIGNANT NEOPLASM OF BREAST Z12.31 ENCNTR SCREEN MAMMOGRAM FOR MALIGNANT NEOPLASM OF [place] COMPARISON: Priors dating back to 2015 EXAM PARAMETERS: Standard craniocaudal and mediolateral oblique views of each breast recorded using digital acquisition. Read with the assistance of CAD. .[facility] - [employer] In[employer] Version 9.2 LIMITATIONS: None. FINDINGS: No suspicious masses, suspicious calcifications or architectural distortion. No areas of c oncern. IMPRESSION: NEGATIVE MAMMOGRAM. BIRADS 1 BREAST DENSITY: b. There are scattered areas of fibroglandular density. BIRAD: ASSESSMENT: 1 NEGATIVE RECOMMENDATION: ROUTINE SCREENING COMMENT: The patient has been notified of the results by letter per MQSA requirements. Additional no tification policies are in place for contacting patient with suspicious or incomplete findings. Quality ID #[id number]: The [employer] recommends an annual screening mammogram for women aged 40 years or over. This facility utilizes a reminder system to ensure that all patients receive reminder letters, and/or direct phone calls for appointments. This includes reminders for routine scr eening mammograms, diagnostic mammograms, or other Breast Imaging Interventions when appropriate. Th is patient will be placed in the appropriate reminder system. TECHNICAL DOCUMENTATION: FINDING NUMBER: (1) ASSESSMENT: (1) JOB ID: [id number] 2010 [employer]- All Rights Reserved Reading location - IP/workstation name: [email or web address]
== END ==
LOC: WI 10:44
PROVIDERS: ATTEND Family Medicine
DX: Z12.31 Encounter for screening mammogram for malignant neoplasm of breast (principal)
CPT/HCPCS: 77067